=== PATIENT | female | born 1940 | race Caucasian/White ===

== ENCOUNTER 2018-04-25 07:30 | Day surgery (SDC) | payer OTHER, MEDICARE ==
[~2018-04-25] VITALS: Ht 157.5 cm; Wt 78.4 kg
[~2018-04-25 07:30] MED LIST: ATROVENT 00.5 MG/2.5 IH; COZAAR25 MG PO; DULCOLAX5 MG PO; FLOMAX0.4 MG PO; KEPPRA500 MG PO; MELATONIN5 M4 PO; MYCOSTATIN 100,60 ML PO; PROAMATINE5 MG PO; REMERON15 M2 PO; RENVELA800 MG PO; TOPROL XL100 MG PO; TYLENOL REGULA325 MG PO; ZOCOR10 MG PO; ZOFRAN4 MG PO; ZOLOFT50 MG PO; ZYLOPRIM100 MG PO
[2018-04-25 08:21] LABS: HEMOGLOBIN 12.4 G/DL (11.9-15.5); MCH 33.1 PG (29.0-34.0); MCV 106.7 FL (83-99); PLATELET COUNT 222 K/uL (156-360); RBC DIS.WIDTH-CV 14.1 % (11.8-14.6); RBC DIS.WIDTH-SD 55.9 % (39-53); RED BLOOD COUNT 3.75 M/uL (3.80-5.20); WHITE BLOOD COUNT 7.8 K/uL (4.1-10.2)
[2018-04-25 08:43] VITALS: BP 107/65
[2018-04-25 08:50] LABS: CHLORIDE 100 MEQ/L (99-109); CREATININE 5.6 MG/DL (0.6-1.3); GFR ESTIMATE (CALCULATED) 8 mL/min/; GLUCOSE 94 mg/dL (70-99); SODIUM 140 MEQ/L (136-147); UREA NITROGEN (BUN) 26 mg/dL (9-23)
[2018-04-25 14:05] VITALS: BP 144/69
[2018-04-25 15:11] VITALS: BP 136/72
[2018-04-25 16:05] VITALS: BP 142/77
== END 2018-04-25 16:10 ==
LOC: SDC 07:30
PROVIDERS: Surgery
DX: I12.9 Hypertensive chronic kidney disease with stage 1 through stage 4 chronic kidney disease, or unspecified chronic kidney disease (principal); N18.6 End stage renal disease; Z99.2 Dependence on renal dialysis
CPT/HCPCS: 80048; 85027; 87641; 93005; J0690; J1644; J1885; J2250; J2405; J2720; J3010; J7643; S0020

== ENCOUNTER 2018-05-21 09:28 | Day surgery (SDC) | payer OTHER, MEDICARE ==
[~2018-05-21] VITALS: Ht 157.5 cm; Wt 80.0 kg
[~2018-05-21 09:28] MED LIST changes: +NORCO 5/3251 TABLET PO
[2018-05-21 10:25] LABS: HEMATOCRIT 34.3 % (36.0-46.0); MCH 33.2 PG (29.0-34.0); MCHC 32.1 G/DL (30.0-36.0); MCV 103.6 FL (83-99); RBC DIS.WIDTH-CV 13.8 % (11.8-14.6); RBC DIS.WIDTH-SD 52.6 % (39-53); RED BLOOD COUNT 3.31 M/uL (3.80-5.20); WHITE BLOOD COUNT 8.2 K/uL (4.1-10.2)
[2018-05-21 10:34] VITALS: BP 153/70
[2018-05-21 10:39] LABS: CHLORIDE 102 MEQ/L (99-109); GFR ESTIMATE (CALCULATED) 9 mL/min/; GLUCOSE 87 mg/dL (70-99); POTASSIUM 5.3 MEQ/L (3.7-5.4); SODIUM 138 MEQ/L (136-147); UREA NITROGEN (BUN) 27 mg/dL (9-23)
[2018-05-21 10:52] LABS: PLAT.SUFFICIENCY DECREASED
[2018-05-21 11:06] LABS: PLATELET COUNT 155 K/uL (156-360)
[2018-05-21 14:10] VITALS: BP 145/70
[2018-05-21 15:10] VITALS: BP 174/77
== END 2018-05-21 15:25 ==
LOC: SDC 09:28
PROVIDERS: Surgery
PROC: 03180JD Bypass Left Brachial Artery to Upper Arm Vein with Synthetic Substitute, Open Approach (ICD-10-PCS; principal; 2018-05-21)
DX: I12.0 Hypertensive chronic kidney disease with stage 5 chronic kidney disease or end stage renal disease (principal); N18.6 End stage renal disease; Z99.2 Dependence on renal dialysis; I69.354 Hemiplegia and hemiparesis following cerebral infarction affecting left non-dominant side; Z82.49 Family history of ischemic heart disease and other diseases of the circulatory system
CPT/HCPCS: 80048; 85027; 87641; 93005; C1768; J0690; J1200; J1644; J2250; J2720; J3010; S0020